=== PATIENT | female | born 1995 | race African-American/Black ===

== ENCOUNTER 2017-02-17 12:57 | Emergency (ER) | payer SELFPAY ==
[~2017-02-17] VITALS: Ht 162.6 cm; Wt 61.0 kg
[2017-02-17 12:59] VITALS: BP 123/74; PULSE 100; RESP 20; TEMP 97.9; O2SAT 99
--- NOTE | 2017-02-17 13:04 | PD ---
Physical Exam Time Seen by Provider: 13:03 Narrative 21 yo female presents for evaluation 5 days of flu symptoms Seen at triage desk. Awaiting bed placement. Data Data Last Documented VS Vital Signs Date Time Temp Pulse Resp B/P Pulse Ox O2 Delivery O2 Flow Rate FiO2 02/17/17 12:59 97.9 100 20 123/74 99 Room Air [facility] Medical Record Reviewed: Yes Supervised Visit with ROSARIO: Yes Pablito Bryan Feb 17, 2017 13:04
--- NOTE | 2017-02-17 13:22 | PD ---
HPI Chief Complaint: Cold / Flu Symptoms Time Seen by Provider: 13:19 Travel History International Travel<30 days: No Contact w/Intl Traveler<30days: No Traveled to known affect area: No History of Present Illness HPI 21-year-old female presents to the emergency department for evaluation of cold/ flulike symptoms that have been ongoing since Thursday, 4 days ago. Patient states the symptoms had improved, but worsened again this morning. She reports a temperature 100.0 this morning. She states that she is coughing, hoarse voice , sore throat. She states she has midsternal chest pain with coughing only. No abdominal pain. No nausea or vomiting. She denies any chance of . She has no chronic medical problems and takes no prescribed medications. PFSH Past Medical History ?: Not LMP: 02/2017 Social History Alcohol Use: No Tobacco Use: No Substance Use: No Allergies-Medications (Allergen,Severity, Reaction): Coded Allergies: No Known Allergies (Unverified , 02/17/17) Reported Meds & Prescriptions Reported Meds & Active Scripts Active No Active Prescriptions or Reported Medications Review of Systems Except as stated in HPI: all other systems reviewed are Neg Physical Exam Narrative GENERAL: Well-nourished, well-developed female patient, ambulatory. Afebrile. SKIN: Focused skin assessment warm/dry. HEAD: Normocephalic. Atraumatic. ENT: Mucosa pink and moist. No erythema or exudates. No uvular edema. No uvular , palatal, or tonsillar deviation. Airway patent. Nasal turbinates appear normal without nasal blood, purulent drainage or septal hematoma. Bilateral tympanic membranes are clear without erythema or perforation. EYES: No scleral icterus. No injection or drainage. NECK: Supple, trachea midline. No JVD or lymphadenopathy. CARDIOVASCULAR: Regular rate and rhythm without murmurs, gallops, or rubs. RESPIRATORY: Breath sounds equal bilaterally. No accessory muscle use. Lungs sounds are clear to auscultation. GASTROINTESTINAL: Abdomen soft, non-tender, nondistended. MUSCULOSKELETAL: No cyanosis, or edema. BACK: Nontender without obvious deformity. No CVA tenderness. Data Data Last Documented VS Vital Signs Date Time Temp Pulse Resp B/P Pulse Ox O2 Delivery O2 Flow Rate FiO2 02/17/17 12:59 97.9 100 20 123/74 99 Room Air Orders Chest, Single Ap (02/17/17 ) Influenzae A/B Antigen (02/17/17 13:19) Group A Rapid Strep Screen (02/17/17 13:19) Strep Culture (Group A) (02/17/17 13:28) MDM Medical Decision Making Medical Screen Exam Complete: Yes Emergency Medical Condition: Yes Medical Record Reviewed: Yes Interpretation(s) Last Impressions Chest X-Ray 02/17/17 0000 Signed Impressions: Service Date/Time: Friday, February 17, 2017 14:01 - CONCLUSION: Normal examination. Ted Neely MD Differential Diagnosis Viral URI versus influenza versus pneumonia versus strep Narrative Course 21-year-old female presents to the emergency department for evaluation of cold symptoms for 4 days, but worsened this morning. Patient does appear well on exam. Lungs sounds are clear to auscultation. Chest x-ray, influenza, strep swabs are ordered and pending. Chest x-ray is normal. Influenza is negative. Strep is negative. Physical exam findings, laboratory findings, imaging is reassuring. Symptoms are most consistent with a viral upper respiratory infection. She is instructed to follow-up with her primary care physician. She is to return for any acute worsening of symptoms. Patient verbalizes agreement and understanding. The patient was discharged in stable condition with instructions, including return instructions and follow up instructions. Diagnosis Primary Impression: Viral upper respiratory infection Referrals: Primary Care Physician call for appointment Patient Instructions: General Instructions, Upper Respiratory Infection (ED) Departure Forms: Tests/Procedures, Work Release Enter return to work date: Feb 19, 2017 Additional Instructions: Rest. Drink plenty of fluids. Tylenol every 4 hours as needed for fever/pain. Ibuprofen every 6-8 hours as needed for fever/pain. Follow-up with your primary care physician. Return to the emergency department for any acute worsening of symptoms. Med/Other Pt SpecificInfo: No Change to Meds Scripts No Active Prescriptions or Reported Meds Disposition: DISCHARGE HOME Condition: Stable Meme Barker MARCO Feb 17, 2017 13:22
--- NOTE | 2017-02-17 14:26 | RADRPT ---
EXAM DATE/TIME: 02/17/2017 14:01 [facility] COMPARISON: No previous studies available for comparison. INDICATIONS : Cough. MEDICAL HISTORY : None. SURGICAL HISTORY : None. ENCOUNTER: Initial ACUITY: 4 - 6 days PAIN SCORE: 0/10 LOCATION: Bilateral chest FINDINGS: A single view of the chest demonstrates the lungs to be symmetrically aerated without evidence of mas s, infiltrate or effusion. The cardiomediastinal contours are unremarkable. Osseous structures are intact. CONCLUSION: Normal examination. Ted Neely MD on February 17, 2017 at 14:25 Board Certified Radiologist. This report was verified electronically.
== END 2017-02-17 14:45 | disposition home or self-care (01) ==
LOC: NEPD 12:57
DX: J06.9 Acute upper respiratory infection, unspecified (principal)
CPT/HCPCS: 71010; 87081; 87804; 87880; 99283

== ENCOUNTER 2017-04-20 19:25 | Emergency (ER) | payer SELFPAY ==
[~2017-04-20] VITALS: Ht 162.6 cm; Wt 60.0 kg
[2017-04-20 19:26] VITALS: BP 127/77; PULSE 114; RESP 16; TEMP 98.4; O2SAT 100
--- NOTE | 2017-04-20 20:28 | PD ---
Physical Exam Date Seen by Provider: Apr 20, 2017 Time Seen by Provider: 20:26 Narrative 21 yo female here for possible UTI. Dysuria and polyuria. No discharge. for 1 day. No allergies. has not taken anything for this. Pain is 3/10. No BM issues. Vitals sign stable. Patient awaiting bed placement. Data Data Last Documented VS Vital Signs Date Time Temp Pulse Resp B/P Pulse Ox O2 Delivery O2 Flow Rate FiO2 04/20/17 19:26 98.4 114 16 127/77 100 Room Air [facility] Medical Record Reviewed: Yes Supervised Visit with ROSARIO: No Scripts No Active Prescriptions or Reported Meds Jhonny Mccauley Apr 20, 2017 20:28
== END 2017-04-20 23:00 | disposition left against medical advice (07) ==
LOC: NED 19:25
DX: R30.0 Dysuria (principal)
CPT/HCPCS: 99281

== ENCOUNTER 2017-05-15 15:03 | Emergency (ER) | payer SELFPAY ==
[~2017-05-15] VITALS: Ht 162.6 cm; Wt 62.0 kg
[2017-05-15 15:04] VITALS: BP 120/78; PULSE 98; RESP 15; TEMP 98.4; O2SAT 99
--- NOTE | 2017-05-15 15:11 | PD ---
Physical Exam Time Seen by Provider: 15:09 Narrative 21yo F c/o dysuria since yesterday. Denies vag dc, odor, itch, lesions. Denies abd pain, fever, vomiting. LMP April 26. Patient seen in triage. VS reviewed. Awaiting bed placement. Data Data Last Documented VS Vital Signs Date Time Temp Pulse Resp B/P Pulse Ox O2 Delivery O2 Flow Rate FiO2 05/15/17 15:04 98.4 98 15 120/78 99 MDM Supervised Visit with ROSARIO: No Scripts No Active Prescriptions or Reported Meds Karley Rushing May 15, 2017 15:11
--- NOTE | 2017-05-15 15:47 | PD ---
HPI Chief Complaint: Complaint Time Seen by Provider: 15:44 Travel History International Travel<30 days: No Contact w/Intl Traveler<30days: No Traveled to known affect area: No History of Present Illness HPI 21-year-old female presents to the emergency department for evaluation of burning with urination for 1 day. Patient states that yesterday she began to have burning with urination, sensation of incomplete voiding and dark urine. States that she think she has a urinary tract infection as she has had similar symptoms in the past with UTI. Denies any fever, chills, nausea, vomiting, abdominal pain, vaginal discharge. Symptoms are moderate. No modifying factors. Denies , last menstrual period was 3 weeks ago. No other complaints. PFSH Past Medical History Medical History: Denies Significant Hx Diminished Hearing: No Tetanus Vaccination: Unknown Influenza Vaccination: No ?: Not LMP: april 26 Past Surgical History Surgical History: No Previous Surgery Social History Alcohol Use: No Tobacco Use: No Substance Use: No Allergies-Medications (Allergen,Severity, Reaction): Coded Allergies: No Known Allergies (Unverified , 05/15/17) Reported Meds & Prescriptions Reported Meds & Active Scripts Active No Active Prescriptions or Reported Medications Review of Systems Except as stated in HPI: all other systems reviewed are Neg Physical Exam Narrative GENERAL: Well-nourished and well-developed pleasant patient in no acute distress who is nontoxic appearing. SKIN: Warm and dry. HEAD: Normocephalic and atraumatic. EYES: No injection, drainage, or hyphema noted. PERRLA. EOMI. ENT: No nasal drainage noted. Oropharynx is clear. NECK: Supple and the trachea is midline. CARDIOVASCULAR: Regular rate and rhythm. RESPIRATORY: Breath sounds are equal bilaterally with no accessory muscle use, wheezing, rhonchi, or crackles. GASTROINTESTINAL: Abdomen is soft, non-tender, and nondistended. MUSCULOSKELETAL: No obvious deformities, swelling, cyanosis, or ecchymosis is present throughout the upper and lower extremities. Patient has full range of motion without any signs of neurovascular compromise. NEUROLOGICAL: Awake, alert, and oriented. Normal speech and gait. Cranial nerves are grossly intact. Data Data Last Documented VS Vital Signs Date Time Temp Pulse Resp B/P Pulse Ox O2 Delivery O2 Flow Rate FiO2 05/15/17 15:04 98.4 98 15 120/78 99 Orders Urinalysis - C+S If Indicated (05/15/17 15:11) Ed Urine Pregnancytest Poc (05/15/17 15:24) Urine Culture (05/15/17 15:18) Labs Laboratory Tests Test 05/15/17 15:18 Urine Color YELLOW Urine Turbidity HAZY Urine pH 6.0 Urine Specific [place] 1.029 Urine Protein TRACE mg/dL Urine Glucose (UA) NEG mg/dL Urine Ketones NEG mg/dL Urine Occult Blood TRACE Urine Nitrite NEG Urine Bilirubin NEG Urine Urobilinogen LESS THAN 2.0 MG/DL Urine Leukocyte Esterase LARGE Urine RBC 12 /hpf Urine WBC 19 /hpf Urine Squamous Epithelial 10 /hpf Cells Urine Bacteria RARE /hpf Urine Mucus MOD /lpf Microscopic Urinalysis Comment CULTURE INDICATED MDM Medical Decision Making Medical Screen Exam Complete: Yes Emergency Medical Condition: Yes Differential Diagnosis Urethritis versus cystitis versus dysuria Narrative Course 21-year-old female presents to the emergency department for evaluation of burning with urination for 1 day. Patient is afebrile, vital signs are stable. Abdominal examination is benign. ED urine test is negative. Urinalysis shows trace occult blood, large leukocyte esterase, 12 red blood cells, 19 white blood cells, rare bacteria, moderate mucus. This is consistent with urinary tract infection. Patient will be placed on Keflex. Diagnosis Primary Impression: Urinary tract infection Qualified Code: N39.0 - Urinary tract infection with hematuria, site unspecified Patient Instructions: General Instructions, Urinary Tract Infection in Women ( ED) Additional Instructions: Take medications as prescribed with food and a full glass of water. Return to the ED for any acute worsening of symptoms. Med/Other Pt SpecificInfo: Prescription(s) given Scripts Cephalexin (Keflex)500 Mg Wir030 Mg PO Q12H 7 Days Ref 0 Prov:William Dye MD 05/15/17 Disposition: 01 DISCHARGE HOME Condition: Stable Karley Garsia May 15, 2017 15:46
[2017-05-15 15:49] LABS: BACTERIA, URINE RARE /hpf; BLOOD, URINE TRACE (NEG); GLUCOSE,URINE NEG (NEG); KETONE, URINE NEG (NEG); MUCUS URINE MOD /lpf (OCC); NITRITE,URINE NEG (NEG); SQUAMOUS EPITHELIAL CELL URINE 10 /hpf (0-5); URINE COLOR YELLOW (YELLW/STRAW)
[2017-05-15 15:53] LABS: COMMENT (UR) CULTURE INDICATED; CULTURE IF INDICATED CULTURE INDICATED
[2017-05-15] MEDS ORDERED: CEPH-460 PO (16:01)
== END 2017-05-15 16:34 | disposition home or self-care (01) ==
LOC: NEPK 15:03
DX: N39.0 Urinary tract infection, site not specified (principal)
CPT/HCPCS: 81001; 84703; 87086; 99283

== ENCOUNTER 2017-06-05 12:55 | Emergency (ER) | payer MEDICAID, OTHER ==
[~2017-06-05] VITALS: Ht 162.6 cm; Wt 62.0 kg
[~2017-06-05 12:55] MED LIST: CEPH-460 PO
[2017-06-05 12:57] VITALS: BP 118/59; PULSE 88; RESP 18; TEMP 98.7; O2SAT 100
--- NOTE | 2017-06-05 13:11 | PD ---
HPI Chief Complaint: Dietary Aid Problem/Complaint Time Seen by Provider: 13:11 Travel History International Travel<30 days: No Contact w/Intl Traveler<30days: No Traveled to known affect area: No History of Present Illness HPI 21-year-old female came to the emergency room with history of vaginal pain and some lesions since yesterday. Patient is sexually active and frequency would have sex without condoms. Bedside was negative. History of previous STDs. She has never had any pelvic exam done in the past. No history of vaginal discharge. [facility] Past Medical History Narrative Medical List of her past medical, surgical, social and family history is reviewed from the nursing note. Anemia: Yes Diminished Hearing: No Immunizations Current: Yes ?: Not LMP: 05/25/17 Social History Alcohol Use: No Tobacco Use: No Substance Use: No Allergies-Medications (Allergen,Severity, Reaction): Coded Allergies: No Known Allergies (Unverified , 06/05/17) Comments No known drug allergies. Reported Meds & Prescriptions Reported Meds & Active Scripts Active Macrobid (Nitrofurantoin Monoh/Nitrofur Macro) 100 Mg Cap 100 Mg PO BID 7 Days Acyclovir 800 Mg Tab 800 Mg PO 5 TIMES A DAY 7 Days Reported Lessina (Levonorgestrel-Ethinyl Estradiol) 0.1-20 mg-mcg Tab 1 Tab PO DAILY Narrative Medication List of her home medications reviewed from the nursing note. Review of Systems Except as stated in HPI: all other systems reviewed are Neg Physical Exam Narrative GENERAL: Awake, alert, anxious SKIN: Focused skin assessment warm/dry. HEAD: Atraumatic. Normocephalic. EYES: Pupils equal and round. No scleral icterus. No injection or drainage. ENT: No nasal bleeding or discharge. Mucous membranes pink and moist. NECK: Trachea midline. No JVD. CARDIOVASCULAR: Regular rate and rhythm. No murmur appreciated. RESPIRATORY: No accessory muscle use. Clear to auscultation. Breath sounds equal bilaterally. GASTROINTESTINAL: Abdomen soft, non-tender, nondistended. Hepatic and splenic margins not palpable. : There was a vesicular, erythematous lesion noticed on the right labia minora posteriorly. This was highly suspicious for herpes. Normal looking discharge noticed in the vaginal area. No CMT or adnexal tenderness. Swabs were collected. MUSCULOSKELETAL: No obvious deformities. No clubbing. No cyanosis. No edema. NEUROLOGICAL: Awake and alert. No obvious cranial nerve deficits. Motor grossly within normal limits. Normal speech. PSYCHIATRIC: Appropriate mood and affect; insight and judgment normal. Data Data Last Documented VS Vital Signs Date Time Temp Pulse Resp B/P Pulse Ox O2 Delivery O2 Flow Rate FiO2 06/05/17 14:40 87 20 100/55 98 Room Air 06/05/17 12:57 98.7 Orders Gc And Chlamydia Pcr (06/05/17 13:17) Wet Prep Profile (06/05/17 13:17) Ua Includes Microscopic (06/05/17 13:17) Ed Urine Pregnancytest Poc (06/05/17 13:17) Acyclovir (Zovirax) (06/05/17 14:15) Nitrofurantoin Monohyd Macrocr (Macrobid (06/05/17 14:30) Labs Laboratory Tests Test 06/05/17 06/05/17 13:30 14:20 Urine Color YELLOW Urine Turbidity HAZY Urine pH 6.5 Urine Specific [place] 1.030 Urine Protein 30 mg/dL Urine Glucose (UA) NEG mg/dL Urine Ketones 10 mg/dL Urine Occult Blood NEG Urine Nitrite NEG Urine Bilirubin NEG Urine Urobilinogen 2.0 MG/DL Urine Leukocyte Esterase LARGE Urine RBC 3 /hpf Urine WBC 18 /hpf Urine Squamous Epithelial 22 /hpf Cells Urine Bacteria OCC /hpf Urine Mucus FEW /lpf Microscopic Urinalysis Comment Clue Cells (Wet Prep) NONE SEEN Vaginal Trichomonas (Wet Prep) NONE SEEN Vaginal Yeast (Wet Prep) NONE SEEN Chlamydia trachomatis DNA NOT DETECTED (PCR) Neisseria gonorrhoeae DNA NOT DETECTED (PCR) MDM Medical Decision Making Medical Screen Exam Complete: Yes Emergency Medical Condition: Yes Medical Record Reviewed: Yes Differential Diagnosis Herpes, STD Narrative Course To 17 p.m. I explained to the patient regarding herpes genitalia. She was visibly uncomfortable. She will be getting acyclovir one dose here and a prescription to go with. UA was suggestive of UTI as well. Procedures EKG Prior to Arrival: No Diagnosis Primary Impression: Herpes genitalis in women Additional Impression: UTI (urinary tract infection) Qualified Code: N39.0 - Urinary tract infection without hematuria, site unspecified Referrals: Primary Care Physician Additional Instructions: Please return to the ER if the condition worsens or any other new concerns. Take the medication as per the prescription direction. You can take Motrin/ Advil/ibuprofen in addition for pain which is available [id number]. Her pieces sexually transmitted. You are currently communicable to your sexual partner. Also your partner needs to be tested and treated for herpes. Med/Other Pt SpecificInfo: Prescription(s) given Scripts Nitrofurantoin Monohydrate Macrocrystals (Macrobid)100 Mg [id number] Mg PO BID 7 Days Ref 0 Prov:Sonal Alva MD 06/05/17 Acyclovir 800 Mg [id number] Mg PO 5 TIMES A DAY 7 Days Ref 0 Prov:Sonal Alva MD 06/05/17 Disposition: 01 DISCHARGE HOME Condition: Stable Sonal Alva MD Jun 05, 2017 13:11
[2017-06-05] MEDS ORDERED: LESSTAB PO (13:19)
[2017-06-05 13:55] LABS: BACTERIA, URINE OCC /hpf; BLOOD, URINE NEG (NEG); GLUCOSE,URINE NEG (NEG); KETONE, URINE 10 mg/dL (NEG); MUCUS URINE FEW /lpf (OCC); NITRITE,URINE NEG (NEG); PH, URINE 6.5 (5.0-8.5); SQUAMOUS EPITHELIAL CELL URINE 22 /hpf (0-5); URINE COLOR YELLOW (YELLW/STRAW)
[2017-06-05] MEDS ORDERED: ACYCLOVIR 800 MG TAB PO ONE (14:15)
[2017-06-05] MEDS ORDERED: ACYC800T PO (14:20)
[2017-06-05] MEDS ORDERED: MACR100C2 PO (14:20)
[2017-06-05] MEDS ORDERED: NITROFURANTOIN MONOHYD MACROCR 100 MG CAP PO ONE (14:30)
[2017-06-05 14:40] VITALS: BP 100/55; PULSE 87; RESP 20; O2SAT 98
[2017-06-05 19:01] LABS: CHLAMYDIA PCR NOT DETECTED (NOT DETECT); NEISSERIA PCR NOT DETECTED (NOT DETECT)
== END 2017-06-05 15:04 | disposition home or self-care (01) ==
LOC: NEPD 12:55
DX: A60.00 Herpesviral infection of urogenital system, unspecified (principal); N39.0 Urinary tract infection, site not specified
CPT/HCPCS: 81001; 84703; 87210; 87491; 87591; 99284